=== PATIENT | male | born 1970 | race Caucasian/White ===

== ENCOUNTER → 2017-06-07 | Outpatient (CLI) | payer BC ==
--- NOTE | 2017-06-08 06:42 | US ---
EXAMINATION TYPE: US prostate transrectal DATE OF EXAM: 06/07/2017 COMPARISON: NONE CLINICAL HISTORY: R97.20 elevated psa. Elevated PSA, family history of prostate CA This examination was performed using the transrectal probe. EXAM MEASUREMENTS: Gland Size: 5.4 x 3.0 x 4.6cm Volume: 39.0ml Predicted PSA: 4.7 Actual PSA (if available):6.8 Slightly enlarged gland with heterogeneous central zone with calcifications, slightly heterogeneous p eripheral zone with 1.0 x 0.8 x 1.1cm hypoechoic vascular area right mid prostate. Seminal vesicles are grossly unremarkable towards beginning of study. Prostate gland is enlarged in s ize and heterogeneous in appearance with central zone calcifications. In the right prostate mid zone there is 10 by 8 by 11 mm oval slightly hypoechoic nodule identified. IMPRESSION: Prostate gland is enlarged in size consistent with BPH, in addition there is peripheral 1.1 cm right mid zone prostate hypoechoic nodule identified. Further investigation with ultrasound gu ided targeted and random biopsy advised.
== END | disposition home or self-care (01) ==
LOC: RADUSMAIN 08:54
PROVIDERS: ATTEND Family Medicine
DX: N40.0 Benign prostatic hyperplasia without lower urinary tract symptoms (principal); N40.2 Nodular prostate without lower urinary tract symptoms
CPT/HCPCS: 76872

== ENCOUNTER 2018-08-21 11:24 | Day surgery (SDC) | payer BC ==
[2018-08-20 09:07] VITALS: BMI 42.0
[~2018-08-21 11:24] MED LIST: LACTATED RINGERS 1,000 ML IV SCH
[2018-08-21 11:56] VITALS: TEMP 98.6
[2018-08-21] MEDS ORDERED: LIDOCAINE 1% 20 ML VIAL (10MG/ML) FOR IV START INTRADERMA ONE (11:56)
[2018-08-21] MEDS ORDERED: PROPOFOL 10 MG/ML 20 ML VIAL IV ONE (13:25)
--- NOTE | 2018-08-21 14:00 | P.PCN ---
Date of Procedure: 08/21/18 Procedure(s) Performed: Procedure: Total colonoscopy. Preoperative diagnosis: Screening for neoplasia. Postoperative diagnosis: Exam within normal limits. Preparation: HalfLytely prep. Sedation: Was provided by anesthesia. Brief clinical history: The patient is a 48-year-old male who is scheduled for this evaluation for screening for neoplasia age being his risk factor. There is no family history of colon cancer. The patient has no abdominal complaints, bleeding or anemia. This would be his first colonoscopy. Procedure: With the patient on his left lateral decubitus position and after informed consent and adequate sedation, the perianal area was inspected and it did not show any fissures or fistulas. There were no masses felt on digital rectal examination. The Olympus CFQ 160L video colonoscope was then inserted in the rectum in the usual fashion and advanced to the cecum. The mucosa appeared healthy. No polyps, tumors, diverticular disease or other pathology noted. I retroflexed the endoscope in the rectum before the endoscope was withdrawn. The patient tolerated the procedure well. Plan: The patient was reassured. He will follow up with you as planned and I recommended repeat exam in 10 years.
[2018-08-21 14:14] VITALS: PULSE 69
[2018-08-21 14:41] VITALS: BP 178/90; RESP 18
== END 2018-08-21 14:46 | disposition home or self-care (01) ==
LOC: ORWHC2ENDO 11:24
DX: Z12.11 Encounter for screening for malignant neoplasm of colon (principal); I10 Essential (primary) hypertension; Z85.46 Personal history of malignant neoplasm of prostate; Z88.8 Allergy status to other drugs, medicaments and biological substances; Z91.030 Bee allergy status; Z90.79 Acquired absence of other genital organ(s); G47.33 Obstructive sleep apnea (adult) (pediatric); Z79.899 Other long term (current) drug therapy
CPT/HCPCS: 45378; J2704

== ENCOUNTER → 2018-08-28 | Outpatient (CLI) | payer BC | LOC: LABWHC1 08:21 | PROVIDERS: ATTEND Urology | DX: C61 Malignant neoplasm of prostate (principal) | CPT/HCPCS: 36415; 84153 ==

== ENCOUNTER → 2019-01-10 | Outpatient (CLI) | payer BC ==
--- NOTE | 2019-01-11 07:41 | CT ---
EXAMINATION TYPE: CT abdomen pelvis w con DATE OF EXAM: 01/10/2019 COMPARISON: HISTORY: Left psoas muscle abscess. CT DLP: 1853 mGycm Automated exposure control for dose reduction was used. TECHNIQUE: Helical acquisition of images was performed from the lung bases through the pelvis. CONTRAST: Performed with Oral Contrast and with IV Contrast, patient injected with 100ml mL of Isovue 300. FINDINGS: LUNG BASES: No significant abnormality is appreciated. LIVER/GB: Cholelithiasis is noted. Solitary 3 mm left hepatic lobe hypoattenuated lesion that is too small to accurately characterize is seen although favored to represent a small cyst given its markedl y decreased attenuation. PANCREAS: No significant abnormality is seen. SPLEEN: No significant abnormality is seen. ADRENALS: No significant abnormality is seen. KIDNEYS: Kidneys enhance and excrete symmetrically without hydronephrosis. There is an exophytic left 1.4 cm renal cyst. FREE AIR: No free air is visualized. ADENOPATHY: Periaortic nonenlarged lymph node is improved in caliber likely inflammatory and reactiv e from the pelvic inflammatory process. No greater than 1 cm short axis lymph nodes are appreciated i n the abdomen or pelvis. OSSEOUS STRUCTURES: Probable right femoral head bone island is noted. Mild to moderate multilevel de generative changes of the spine are seen. BOWEL: Few sigmoid diverticula are seen. No dilated large or small bowel. Appendix is similar to the prior and unremarkable. OTHER: Ventral abdominal wall hernia is wide neck and containing loops of nondilated small bowel. The previously seen left pelvic sidewall abscess has decreased in size from 1.8 cm to 1.3 cm. There i s surrounding phlegmonous changes. This is in close proximity and intimately associated with both the left ureter and external iliac vasculature. The previously seen left-sided hydronephrosis has resolv ed. Phlegmonous changes within the pelvis have improved. There is a lesser degree of anterior left la teral urinary bladder wall thickening in comparison to the prior. IMPRESSION: DECREASING SIZE OF THE LEFT PELVIC SIDEWALL ABSCESS, DECREASED IN SURROUNDING INFLAMMATORY AND PHLEGM ONOUS CHANGES, AND DECREASED ANTERIOR LEFT LATERAL URINARY BLADDER WALL THICKENING. THE ABSCESS ABUTS THE LEFT EXTERNAL ILIAC VEIN. THEREFORE, LEFT LOWER EXTREMITY ULTRASOUND IS RECOMMENDED TO EVALUATE FOR DEEP VENOUS THROMBOSIS OF THE LEFT COMMON FEMORAL OR EXTERNAL ILIAC VEIN.
== END ==
LOC: RADCTMAIN 13:41
PROVIDERS: ATTEND Internal Medicine Infectious Disease
DX: K68.12 Psoas muscle abscess (principal); N32.9 Bladder disorder, unspecified
CPT/HCPCS: 74177; Q9967

== ENCOUNTER → 2019-01-25 | Outpatient (CLI) | payer BC ==
--- NOTE | 2019-01-25 09:53 | CT ---
EXAMINATION TYPE: CT abdomen pelvis w con DATE OF EXAM: 01/25/2019 COMPARISON: 01/10/2019 HISTORY: Follow up psoas muscle abscess. CT DLP: 2353.7 mGycm Automated exposure control for dose reduction was used. CONTRAST: CT scan of the abdomen pelvis is performed with IV Contrast, patient injected with 100 mL of Isovue 3 00. FINDINGS- LUNG BASES- No significant abnormality is appreciated. LIVER/GB-cholelithiasis noted. PANCREAS- No gross abnormality is seen. SPLEEN- No gross abnormality is seen. ADRENALS- No gross abnormality is seen. KIDNEYS/BLADDER- no hydronephrosis nephrolithiasis or renal mass. BOWEL- no bowel dilatation. Normal appendix. LYMPH NODES- No greater than 1cm abdominal or pelvic lymph nodes areappreciated. OSSEOUS STRUCTURES- Probable right femoral head bone island is noted. Mild to moderate multilevel de generative changes of the spine are seen. OTHER- anterior abdominal wall hernia noted. There remains mild edema along the left pelvic sidewall . Previously noted abscess or phlegmon measures approximately 0.8 cm and previously measured 1.2 cm. Small cystocele noted. IMPRESSION- 1. Decrease in size of the left pelvic sidewall abscess or phlegmon with reduced inflammatory changes in the pelvis. No definite fluid attenuation is seen on today's exam. Residual inflammatory changes noted. Measures 0.8 cm on today's exam and 1.2 cm in previous exam. 2. Cholelithiasis.
== END | disposition home or self-care (01) ==
LOC: RADPROMAIN 06:58
PROVIDERS: ATTEND Internal Medicine Infectious Disease
DX: K68.12 Psoas muscle abscess (principal); K80.20 Calculus of gallbladder without cholecystitis without obstruction
CPT/HCPCS: 74177; Q9967

== ENCOUNTER → 2019-03-30 | Outpatient (CLI) | payer BC | LOC: LABWHC1 11:01 | PROVIDERS: ATTEND Urology | DX: C61 Malignant neoplasm of prostate (principal) | CPT/HCPCS: 36415; 84153 ==